=== PATIENT | male | born 1935 | race Caucasian/White ===

== ENCOUNTER → 2017-04-07 | Outpatient (CLI) | payer MEDICARE, OTHER ==
--- NOTE | 2017-04-07 13:19 | US ---
EXAMINATION TYPE: US extremity nonvasc mass LT DATE OF EXAM: 04/07/2017 1:00 PM COMPARISON: NONE CLINICAL HISTORY: L98.9 Disorder of skin/nodule. Patient has area of non healing wound left medial ca lf x 2 months. Scanned area of concern, left medial calf, there are calcifications seen with surrounding blood vesse ls. Vessels are compressible. IMPRESSION: 1. Prominent subcutaneous venous structures may represent varicosity. Surrounding soft tissue calcifi cations noted.
== END | disposition home or self-care (01) ==
LOC: RADUSWWP 12:32
PROVIDERS: ATTEND Surgery
DX: L98.9 Disorder of the skin and subcutaneous tissue, unspecified (principal)

== ENCOUNTER 2021-06-17 07:21 | Day surgery (SDC) | payer MEDICARE ==
[2021-06-11 15:47] VITALS: BMI 29.9
[~2021-06-17 07:21] MED LIST: LACTATED RINGERS 1,000 ML IV SCH; LIDOCAINE 1% (10MG/ML) FOR IV START INTRADERMA PRN
[2021-06-17 08:10] LABS: Glucose,Whole Blood 107 mg/dL (75-99)
[2021-06-17 08:11] VITALS: TEMP 96.4
[2021-06-17] MEDS ORDERED: PROPOFOL 10 MG/ML 20 ML VIAL IV ONE (08:19)
--- NOTE | 2021-06-17 08:22 | P.GSHP ---
History of Present Illness H&P Date: 06/17/21 Chief Complaint: History of polyps, abnormal cologuard Patient here today for colonoscopy. Patient had a recent cologuard test that was abnormal. 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 Patient without bowel complaints. Past Medical History Past Medical History: Atrial Fibrillation, Coronary Artery Disease (CAD), Cancer, Diabetes Mellitus, Hypertension, Osteoarthritis (OA), Skin Disorder, Thyroid Disorder Additional Past Medical History / Comment(s): Colon cancer, wound lt ankle receiving tx. History of Any Multi-Drug Resistant Organisms: None Reported Past Surgical History: Bowel Resection, Coronary Bypass/CABG, Heart Catheterization, Heart Catheterization With Stent, Joint Replacement Additional Past Surgical History / Comment(s): Colonoscopy, skin biopsy/graft, bilateral cataract, thyroid, rt hip replacement Past Anesthesia/Blood Transfusion Reactions: No Reported Reaction Date of Last Stent Placement:: 2002 Smoking Status: Former smoker - Past Family History Mother Family Medical History: No Reported History Medications and Allergies Home Medications Medication Instructions Recorded Confirmed Type Dronedarone [Multaq] 400 mg PO AC-BID 03/19/14 06/11/21 History Levothyroxine Sodium [Synthroid] 250 mcg PO MOTUWETHFR 03/19/14 06/17/21 History Pioglitazone HCl [Actos] 15 mg PO DAILY 03/19/14 06/17/21 History Quinapril HCl [Accupril] 10 mg PO DAILY 03/19/14 06/17/21 History Rivaroxaban [Xarelto] 15 mg PO DAILY 03/19/14 06/17/21 History Rosuvastatin Calcium [Crestor] 20 mg PO DAILY 03/19/14 06/17/21 History glyBURIDE [Diabeta] 1.25 mg PO AC-BRKFST 03/19/14 06/17/21 History Ezetimibe [Zetia] 10 mg PO DAILY 06/11/21 06/11/21 History Ferrous Sulfate [Feosol] 325 mg PO DAILY 06/11/21 06/11/21 History Garlic 1 each PO DAILY 06/11/21 06/11/21 History Levothyroxine Sodium [Synthroid] 50 mcg PO SUSA 06/11/21 06/17/21 History Multivitamins, Thera [Multivitamin 1 tab PO DAILY 06/11/21 06/11/21 History (formulary)] Tamsulosin HCl [Flomax] 0.4 mg PO DAILY 06/11/21 06/17/21 History Turmeric Root Extract [Turmeric] 1,400 mg PO DAILY 06/11/21 06/17/21 History Allergies Allergy/AdvReac Type Severity Reaction Status Date / Time adhesive Allergy Severe Rash/Hives Verified 06/17/21 07:55 Penicillins Allergy Severe Swelling Verified 06/17/21 07:55 sulfamethoxazole Allergy Severe Rash/Hives Verified 06/17/21 07:55 [From Bactrim] trimethoprim [From Bactrim] Allergy Severe Rash/Hives Verified 06/17/21 07:55 Surgical - Exam Vital Signs Temp Pulse Resp BP Pulse Ox 96.4 F L 110 H 18 145/65 97 06/17/21 08:08 06/17/21 08:08 06/17/21 08:08 06/17/21 08:08 06/17/21 08:08 Physical exam: General: Well-developed, well-nourished HEENT: Normocephalic, sclerae nonicteric Abdomen: Nontender, nondistended Extremities: No edema Neuro: Alert and oriented Results - Labs Abnormal Lab Results - Last 24 Hours (Table) 06/17/21 Range/Units 08:09 POC Glucose (mg/dL) 107 H (75-99) mg/dL Assessment and Plan (1) Abnormal stool test Narrative/Plan: Will proceed with colonoscopy at this time Current Visit: Yes Status: Acute Code(s): R19.5 - OTHER FECAL ABNORMALITIES SNOMED Code(s): 303802343
--- NOTE | 2021-06-17 08:41 | P.PCN ---
Date of Procedure: 06/17/21 Procedure(s) Performed: PREOPERATIVE DIAGNOSIS: Abnormal cologuard, history of polyps POSTOPERATIVE DIAGNOSIS: Extensive diverticulosis, mild inflammation sigmoid colon, poor prep PROCEDURE: Colonoscopy with biopsy ANESTHESIA: MAC SURGEON: Huey Serrato M.D. SPECIMENS: Sigmoid colon ENDOSCOPIC PROCEDURE: The patient was placed on the endoscopy table in the left decubitus position. The Olympus colonoscope was inserted into the anus and passed under direct visualization to the ileocolonic anastomosis. The anastomosis was widely patent. This appeared to be in the mid transverse colon. The remainder of the transverse and descending colon were free of any neoplastic inflammatory or polypoid lesions. In the midsigmoid colon during a stretch of extensive diverticulosis there was mild luminal narrowing and mild erythema mucosa. There was an area of fibropurulent exudate seen in one area as well. Biopsies were taken to evaluate for neoplastic changes although this appeared most consistent with mild colitis or mild diverticulitis. The remainder of the sigmoid and rectum was free of abnormalities. The patient's prep was poor with retained stool seen scattered throughout. Small polyps would have been easily missed. Digital rectal examination was normal. The patient was taken to the recovery room in stable condition per anesthesia guidelines. RECOMMENDATIONS: Await biopsy results. Patient may benefit from short-term follow-up in the future.
[2021-06-17 09:34] VITALS: BP 139/76; PULSE 59; RESP 18
== END 2021-06-17 09:47 | disposition home or self-care (01) ==
LOC: ORWHC2ENDO 07:21
PROVIDERS: ATTEND Surgery
DX: K52.9 Noninfective gastroenteritis and colitis, unspecified (principal); K57.30 Diverticulosis of large intestine without perforation or abscess without bleeding; Z85.038 Personal history of other malignant neoplasm of large intestine; I48.91 Unspecified atrial fibrillation; I25.10 Atherosclerotic heart disease of native coronary artery without angina pectoris; E11.9 Type 2 diabetes mellitus without complications; I10 Essential (primary) hypertension; M19.90 Unspecified osteoarthritis, unspecified site; E07.9 Disorder of thyroid, unspecified; S90.912D Unspecified superficial injury of left ankle, subsequent encounter; Z90.49 Acquired absence of other specified parts of digestive tract; Z95.1 Presence of aortocoronary bypass graft; Z95.5 Presence of coronary angioplasty implant and graft; Z96.641 Presence of right artificial hip joint; Z98.42 Cataract extraction status, left eye; Z98.41 Cataract extraction status, right eye; Z87.891 Personal history of nicotine dependence; Z79.01 Long term (current) use of anticoagulants; Z79.84 Long term (current) use of oral hypoglycemic drugs; Z79.890 Hormone replacement therapy; Z79.899 Other long term (current) drug therapy; Z88.0 Allergy status to penicillin; Z88.2 Allergy status to sulfonamides
CPT/HCPCS: 88305; 45380; J2704

== ENCOUNTER → 2021-10-01 | Outpatient (CLI) | payer MEDICARE ==
--- NOTE | 2021-10-02 09:07 | US ---
EXAMINATION TYPE: US kidneys/renal and bladder DATE OF EXAM: 10/01/2021 COMPARISON: NONE CLINICAL HISTORY: CKD N28.9. HTN, DM, CKD, urinary incontinence EXAM MEASUREMENTS: Right Kidney: 11.9 x 5.3 x 5.9 cm Left Kidney: 13.9 x 6.4 x 5.5 cm Right Kidney: Cystic area 1) 1.4 x 1.3 x 1.0 cm Left Kidney: Cystic area 1). 3.5 x 3.0 x 2.6 2) 0.7 x 0.9 1.1cm Bladder: wnl Bilateral Jets seen: Yes There is no evidence for hydronephrosis at this point in time. No nephrolithiasis is seen. The urin lilly bladder is anechoic. Bilateral ureteral jets are seen. IMPRESSION: Renal cysts.
== END | disposition home or self-care (01) ==
LOC: RADUSWWP 15:25
PROVIDERS: ATTEND Family Medicine
DX: I12.9 Hypertensive chronic kidney disease with stage 1 through stage 4 chronic kidney disease, or unspecified chronic kidney disease (principal); N18.9 Chronic kidney disease, unspecified; N28.1 Cyst of kidney, acquired
CPT/HCPCS: 76770